=== PATIENT | male | born 1990 | race Two or more races ===

== ENCOUNTER 2017-11-02 20:38 | Emergency (ER) | payer SELFPAY ==
[~2017-11-02] VITALS: Ht 175.3 cm; Wt 113.4 kg
[2017-11-02 20:45] VITALS: BP 135/85
[2017-11-02 21:30] VITALS: BP 135/85
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
== END 2017-11-02 21:30 | disposition home or self-care (01) ==
LOC: EMR 21:17
DX: T81.4XXA Infection following a procedure, initial encounter (principal); L03.311 Cellulitis of abdominal wall; Y83.8 Other surgical procedures as the cause of abnormal reaction of the patient, or of later complication, without mention of misadventure at the time of the procedure; Y92.9 Unspecified place or not applicable; J45.909 Unspecified asthma, uncomplicated
CPT/HCPCS: 99283